=== PATIENT | male | born 1975 | race Caucasian/White ===

== ENCOUNTER 2023-02-18 01:51 | Emergency (ER) | payer OTHER ==
[2023-02-18] MEDS ORDERED: Morphine 4 MG/ML VIAL ONE ×2 (02:24→05:44)
[2023-02-18] MEDS ORDERED: Ondansetron PF 4 MG/2 ML Vial ONE ×2 (02:24→05:44)
[2023-02-18 02:47] LABS: #Eosinphils 0.2 thou/uL (0.0-0.7); #Monocytes 1.2 thou/uL (0.11-0.59); #Neutrophils 12.1 thou/uL (1.40-6.50); %Basophils 0.1 % (0.0-1.0); %Lymphocytes 10.6 % (21.0-51.0); %Monocytes 7.6 % (0.0-10.0); %Neutrophils 80.2 % (42.0-75.0); Hemoglobin 14.3 g/dL (14.0-18.0); Mean Corpuscular HGB CONC 33.3 g/dL (32.0-36.0); Mean Corpuscular Hemoglobin 29.2 pg (27.0-31.0); Mean Corpuscular Volume 87.9 fl (78.0-98.0); Mean Platelet Volume 9.9 fL (7.4-10.4); Platelet Count 500 10x3/uL (130-400); RBC Distribution Width 14.2 % (11.5-14.5); Red Blood Cell (RBC) Count 4.89 mill/uL (4.70-6.10); White Blood Cell (WBC) Count 15.1 10x3/uL (4.8-10.8)
[2023-02-18 05:56] LABS: ALT (SGPT) 34 U/L (8-55); AST (SGOT) 24 U/L (5-34); Alkaline Phosphatase 90 U/L (40-110); Anion Gap 14 mmol/L (10-20); BUN (Urea Nitrogen) 22 mg/dL (8.9-20.6); Bilirubin, Total 0.5 mg/dL (0.2-1.2); Calc. Creatinine Clearance 0 mL/min (70-130); Calcium 9.6 mg/dL (7.8-10.44); Carbon Dioxide 25 mmol/L (22-29); Chloride 100 mmol/L (98-107); Estimated GFR 107; Globulin 2.9 g/dL (2.4-3.5); Glucose 113 mg/dL (70-105); Lipase 41 U/L (8-78); Potassium 4.2 mmol/L (3.5-5.1); Protein, Total 6.9 g/dL (6.0-8.3); Sodium 135 mmol/L (136-145)
[2023-02-18] MEDS ORDERED: Benzocaine 20% Spray 60 ML CAN ONE (06:17)
[2023-02-18] MEDS ORDERED: Iopamidol-370 76% 500 ML MDV (1 ML CHARGE) ONE (09:28)
== END 2023-02-18 08:38 | disposition short-term general hospital (02) ==
LOC: ERS 01:51
DX: K56.609 Unspecified intestinal obstruction, unspecified as to partial versus complete obstruction (principal); I10 Essential (primary) hypertension; F17.210 Nicotine dependence, cigarettes, uncomplicated
CPT/HCPCS: 74018; 74177; 80053; 83690; 85025; 93005; 96374; 96375; 96376; J2270; J2405; Q9967